=== PATIENT | female | born 1970 | race Caucasian/White ===

== ENCOUNTER 2017-06-16 06:10 | Inpatient (IN) ==
[2017-06-16] MEDS ORDERED: Albuterol 2.5 MG/3 ML NEBULIZER IH ONE (06:31)
[2017-06-16] MEDS ORDERED: Ringers Solution, Lactated 1,000 ML IVC SCH ×2 (06:45→11:15)
[2017-06-16] MEDS ORDERED: *HR* Succinylcholine 200 MG/10 ML VIAL IVP ONE (06:59)
[2017-06-16] MEDS ORDERED: *HR* FentaNYL (PF) 100 MCG/2 ML VIAL ONE (06:59)
[2017-06-16] MEDS ORDERED: Ondansetron 4 MG/2 ML VIAL ONE ×2 (06:59→07:00)
[2017-06-16] MEDS ORDERED: *HR* Midazolam HCl 2 MG/2 ML VIAL ONE (06:59)
[2017-06-16] MEDS ORDERED: *HR* Rocuronium Bromide 50 MG/5 ML VIAL ONE (06:59)
[2017-06-16] MEDS ORDERED: Lidocaine -MPF 2% 2 ML VIAL ONE ×2 (06:59→07:00)
[2017-06-16] MEDS ORDERED: *HR* Propofol 200 MG/20 ML VIAL IVP ONE (06:59)
[2017-06-16] MEDS ORDERED: Dexamethasone 4 MG/ML VIAL ONE (07:00)
[2017-06-16] MEDS ORDERED: Lidocaine -MPF 4% 5 ML AMPUL ONE (07:00)
[2017-06-16] MEDS ORDERED: *HR* Phenylephrine 10 MG/ML VIAL ONE (07:00)
--- NOTE | 2017-06-16 07:27 | History & Physical Report ---
Date of Encounter: 06/16/17 Time of Encounter: 07: 24 Hour HP Update - Instructions Instructions: If the History and Physical is less than 30 days old and was completed prior to A.M. admission and or procedure and has NOT been updated on calendar day of procedure please complete this update prior to performing procedure. - Update Patient reports changes in Medical Condition: No Changes in examination, assessment, or condition: No Changes in Medication: No Preop tests/diagnostics Reviewed: Yes Surgery Remains Indicated: Yes Consent for Planned Operative Procedure(s) Verified: Yes - Pre-Operative Checklist Preoperative Checklist Indicated: Yes Prophylactic Antibiotic Ordered: Yes Home Medications Include Beta Thang: No Beta Thang Taken Today (Day of Surgery): No Beta Thang Taken Yesterday (Day Prior to Surgery): No Is VTE Prophylaxis Indicated?: Yes
--- NOTE | 2017-06-16 07:35 | Anesthesia Evaluation PreOp ---
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: Denies Any Significant HX Other Medical History: Diabetes Type II (does not use insulin) Anesthesia History: No Prior Anesthetic Complications Alcohol Use: none Drug use: none Medications and Allergies Aspirin [Lo-Dose Aspirin EC] 81 mg PO DAILY 05/31/17 [History] Atorvastatin [Lipitor] 40 mg PO HS 05/31/17 [History] Buspirone HCl [Buspar] 10 mg PO BID 05/31/17 [History] Carvedilol [Coreg] 25 mg PO BID 05/31/17 [History] FLUoxetine HCl [PROzac] 60 mg PO DAILY 05/31/17 [History] Linagliptin [Tradjenta] 5 mg PO DAILY 05/31/17 [History] Lisinopril [Zestril] 40 mg PO DAILY 05/31/17 [History] Metformin HCl [Glucophage] 1,000 mg PO BID 05/31/17 [History] Allergies No Known Allergies Allergy (Unverified 06/16/17 06:55) - Meds/Allergy Pre-op Review Medications Reviewed: Yes Allergies Reviewed: Yes Beta Blockers on Current Med List: Yes If Beta Blockers taken, Date/Time (Last Dose taken): 06-16-17 coreg 5:00 am Anesthesia Results - Labs Laboratory Tests 05/31/17 06/16/17 06:48 06:31 POC Glucose 154 H POC Urine HCG, Qual Negative - Imaging EKG: report reviewed, image reviewed (SR; poor R wave progression) Anesthesia Exam Last Vital Signs Temp 98.1 F 06/16/17 06:33 Pulse 79 06/16/17 06:33 Resp 18 06/16/17 06:33 BP 121/75 06/16/17 06:33 Pulse Ox 97 06/16/17 06:33 Weight: 97 kg NPO (# of Hours): >> 8 hrs - HEENT Pupil (Motor): Pupils equal, EOMI Mallampati: III Teeth: Edentulous Oral Opening: Greater than 3 - CARTON STENCILER LOC: Oriented CARTON STENCILER Motor: Normal RUE, Normal LUE, Normal RLE, Normal LLE, Normal Face - Cardiac Rhythm: Regular Murmur: None - Pulmonary Breath Sounds: bilateral Clear Respiratory Effort: Symmetrical Anesthesia Assess/Plan ASA Score: 3 Modified Maurice Scale for Level of Consciousness: Cooperative, oriented, and tranquil Anesthetic Plan: General Monitoring Plan: Standard Monitors Recovery Plan: PACU
[2017-06-16] MEDS ORDERED: EPHEDrine 50 MG/ML VIAL ONE (07:46)
[2017-06-16] MEDS ORDERED: *HR* HYDROmorphone 2 MG/ML SYRINGE ONE (08:12)
[2017-06-16] MEDS ORDERED: *HR* Meperidine 25 MG/ML SYRINGE IVP PRN (08:41)
[2017-06-16] MEDS ORDERED: *HR* Promethazine 25 MG/ML VIAL IVP PRN (08:41)
[2017-06-16] MEDS ORDERED: Neostigmine Methylsulfate 3 MG/3 ML SYRINGE ONE (10:27)
[2017-06-16] MEDS ORDERED: Naloxone 0.4 MG/ML INJ IVP PRN (11:04)
[2017-06-16] MEDS: *HR* HYDROmorphone (PF) 1 MG/ML SYRINGE IVP PRN ×4 (11:15→12:10)
--- NOTE | 2017-06-16 11:24 | OB/GYN Procedure Note ---
OB-SAS ARCHITECT: Procedure - Diagnosis Date of procedure: 06/16/17 Pre-op diagnosis: AUB Post-op diagnosis: same - Procedure Procedure: SHIRLEY, BS, cysto Surgeon: Katlin Armendariz Drop Count Associate: Orion Marquez Anesthesia Type: General Estimated blood loss (cc): 200 Fluids: crystalloid Procedure Complications: none Specimens collected: uterus, bilateral tubes Disposition: floor Findings: severely adherent bladder to anterior uterine wall Narrative: The patient was brought into the OR where general anesthesia was given without difficulty. Lazo was placed and was draining clear urine from the bladder. After the patient was prepped and draped in the usual sterile manner, a Pfannenstiel incision was made at the level of her previous scar. Subcutaneous tissue was incised until the level of the rectus fascia was reached. A erika was made in the fascia. This was extended the length of the incision using Bowling scissors. There was dense scar tissue communicating with the recti muscles but we were able to separate the muscles and get adequate entry into the abdomen. We explored the abdomen. The bowels grossly appeared normal. The uterus was noted to be severely adherent to the bladder. The ovaries and tubes were examined and found to be normal. The Bookwalter retractor was set up before the hysterectomy was started. The right round ligament was clamped with the Ligasure device, clamped and cut. The anterior leaf of the broad ligament was cut using Metzenbaum scissors. The bladder that was adherent to the anterior aspect of the uterus was gently dissected using sharp and blunt dissection and it was gently pushed down with the sponge on a stick. Two fingers were inserted through the posterior leaf of the right broad ligament. The tissue was grasped with the Ligasure, clamped and cut to free the ovaries as well as amputate the tubes. The right uterine artery was then skeletonized, clamped at the level of the cervical os using the Ligasure device and cut. Similar procedure was done on the opposite side. By the time we got down to the cervix, we saw that the bladder was still adherent. After re-examination of how densely adherent the bladder was, I decided to perform a supracervical hyterectomy to avoid bladder injury.We spent a lot time bluntly and sharply dissecting the bladder off the uterus. When we were satisfied that we had reached the cervico-uterine junction and the bladder was dissected off, we proceeded to amputate the uterus at this point. This we did by placing 2 curved heaneys tip to tip together beneath the cervix, using curved scissors to amputate the uterus. O-Vicryl suture was then used to approximate the cuff. Bleeding points were suture ligated until adequate hemsostasis was achieved. A cystoscopy was done and the bladder was thoroughly inspected to make sure there was no stitch through the bladder. I changed gloves and gown and proceeded to finish up the case after the cystoscopy. The retractor was taken out from the abdomen as well as the laps sponges. The recti muscles were reapproximated with 3-0 vicryl, the fascia was reapproximated with 0-vicryl, the subcutaneous tissue was reapproximated with 3- 0 vicryl. The skin was closed with roger. The patient tolerated the procedure well and was transferred to the floor.
[2017-06-16] MEDS ORDERED: Dextrose Gel 15 GM PO PRN ×2 (11:34)
[2017-06-16] MEDS ORDERED: *HR* Dextrose 50 % in Water (Syg) 50 ML SYRINGE IVP PRN (11:34)
[2017-06-16] MEDS ORDERED: D5% in Water 1,000 ML IVC PRN (11:34)
[2017-06-16] MEDS ORDERED: Acetaminophen IV 1,000 MG/100 ML INFUS..BTL IVPB ONE (11:56)
[2017-06-16] MEDS ORDERED: Ketorolac 30 MG/ML VIAL IVP ONE (11:56)
--- NOTE | 2017-06-16 12:17 | Anesthesia Evaluation Post Op ---
Date of Encounter: 06/16/17 Time of Encounter: 12:17 - Vital Signs Vital Signs: Last Vital Signs Temp 99.3 F 06/16/17 12:02 Pulse 75 06/16/17 12:12 Resp 16 06/16/17 12:12 BP 121/69 06/16/17 12:12 Pulse Ox 95 06/16/17 12:12 - Lungs Lungs: Clear Ascult./Percussion - Airway Airway: Non-obstructed - Cardiovascular Regular Rate - Mental Status Mental Status: Alert & Oriented, Answers Appropriately - Pain Pain Scale: 5 - Nausea Vomiting Nausea Vomiting: Not Present - Hydration Hydration: Ice chips, Lazo catheter - Discharge PostOp Status: Transfer Patient to floor
[2017-06-16 15:40] LABS: Hemoglobin A1C 7.7 %
[2017-06-16] MEDS: *HR* OxyCODONE/APAP 5/325 TABLET PO PRN ×2 (16:03→20:44)
[2017-06-16] MEDS: Insulin LISPRO 300 UNITS/3 ML VIAL SQ SCH (17:01)
[2017-06-17] MEDS: *HR* OxyCODONE/APAP 5/325 TABLET PO PRN ×4 (02:18→16:09)
[2017-06-17] MEDS: Ibuprofen 600 MG TABLET PO PRN ×2 (07:05→16:09)
[2017-06-17 07:45] LABS: Basophils % 0.2 %; Eosinophils % 0.1 %; Hematocrit 37.7 % (35.3-44.9); Hemoglobin 13.1 g/dL (11.5-15.4); Immature Granulocytes % 0.3 % (0-4); Lymphocytes # 2.3 K/mcL (0.6-4.6); Lymphocytes % 15.6 %; Mean Corpuscular HGB Conc 34.7 g/dL (31.6-35.5); Mean Corpuscular Hemoglobin 29.6 pg (28.0-33.3); Mean Corpuscular Volume 85.3 fL (83.0-100.0); Mean Platelet Volume 9.8 fL (9.4-12.4); Monocytes # 1.1 K/mcL (0.0-1.3); Monocytes % 7.4 %; Neutrophils # 11.1 K/mcL (1.6-8.9); Platelet Count 350 K/mcL (140-400); Red Blood Count 4.42 M/mcL (3.82-4.97); Red Cell Distribution Width 12.9 % (11.5-14.5); Segmented Neutrophils % 76.4 %
[2017-06-17 07:52] LABS: Alanine Aminotransferase 48 Units/L (0-55); Albumin 3.1 g/dL (3.5-5.0); Albumin/Globulin Ratio 0.9 (1.1-2.2); Alkaline Phosphatase 81 Units/L (38-126); Aspartate Amino Transferase 27 Units/L (5-34); BUN/Creatinine Ratio 10 (6-26); Bilirubin,Total 0.6 mg/dL (0.2-1.2); Blood Urea Nitrogen 8 mg/dL (7-20); Calcium 9.2 mg/dL (8.6-10.8); Carbon Dioxide 26 mEq/L (19-29); Chloride 105 mEq/L (98-109); Globulin 3.5 g/dL (2.4-3.5); Glucose 153 mg/dL (70-99); Osmolality,Calculated 285 (280-300); Potassium 4.2 mEq/L (3.5-4.5); Sodium 137 mEq/L (136-145); Total Protein 6.6 g/dL (6.0-8.3); eGFR For African Americans > 60 (> 60); eGFR For Non-African Americans > 60 (> 60)
[2017-06-17] MEDS: Insulin LISPRO 300 UNITS/3 ML VIAL SQ SCH ×3 (08:19→17:04)
[2017-06-17 08:30] VITALS: BP 135/80
--- NOTE | 2017-06-17 12:59 | Discharge Summary ---
Date of Encounter: 06/17/17 Time of Encounter: 12:58 - Discharge Diagnosis (1) Status post hysterectomy Priority: Primary Status: Acute Comments: status post SHIRLEY, POD#1, doing well, patient wants to go home, ambulating without issues, tolerating PO, pain under control, good UOP, ok for discharge to follow up outpt - Discharge Medications Prescriptions: Ibuprofen [Motrin] 600 mg PO Q6HR PRN #60 tab PRN Reason: Pain Oxycodone HCl/Acetaminophen [Percocet 5-325 mg Tablet] 1 each PO Q4-6H PRN #40 tablet PRN Reason: Severe Pain Home Medications: Aspirin [Lo-Dose Aspirin EC] 81 mg PO DAILY 05/31/17 [History] Atorvastatin [Lipitor] 40 mg PO HS 05/31/17 [History] Buspirone HCl [Buspar] 10 mg PO BID 05/31/17 [History] Carvedilol [Coreg] 25 mg PO BID 05/31/17 [History] FLUoxetine HCl [PROzac] 60 mg PO DAILY 05/31/17 [History] Linagliptin [Tradjenta] 5 mg PO DAILY 05/31/17 [History] Lisinopril [Zestril] 40 mg PO DAILY 05/31/17 [History] Metformin HCl [Glucophage] 1,000 mg PO BID 05/31/17 [History] Ibuprofen [Motrin] 600 mg PO Q6HR PRN #60 tab 06/17/17 [Rx] Oxycodone HCl/Acetaminophen [Percocet 5-325 mg Tablet] 1 each PO Q4-6H PRN #40 tablet 06/17/17 [Rx] Allergies/Adverse Reactions: Allergies No Known Allergies Allergy (Unverified 06/16/17 06:55) Data Procedures and tests throughout hospitalization: Laboratory Tests 06/16/17 06/16/17 06/16/17 06:29 06:31 13:05 WBC RBC Hgb Hct MCV MCH MCHC RDW Plt Count MPV Immature Gran % Seg Neutrophils % Lymphocytes % Monocytes % Eosinophils % Basophils % Neutrophils # Lymphocytes # Monocytes # Eosinophils # Basophils # Sodium Potassium Chloride Carbon Dioxide BUN Creatinine Est GFR ( Amer) Est GFR (Non-Af Amer) BUN/Creatinine Ratio Glucose POC Glucose 143 H Est Mean Plasma Glucose 174 Hemoglobin A1c 7.7 H Calculated Osmolality Calcium Total Bilirubin AST ALT Alkaline Phosphatase Serum Total Protein Albumin Globulin Albumin/Globulin Ratio POC Urine HCG, Qual Negative 06/16/17 06/17/17 06/17/17 16:19 07:04 07:04 WBC 14.5 H RBC 4.42 Hgb 13.1 Hct 37.7 MCV 85.3 MCH 29.6 MCHC 34.7 RDW 12.9 Plt Count 350 MPV 9.8 Immature Gran % 0.3 Seg Neutrophils % 76.4 Lymphocytes % 15.6 Monocytes % 7.4 Eosinophils % 0.1 Basophils % 0.2 Neutrophils # 11.1 H Lymphocytes # 2.3 Monocytes # 1.1 Eosinophils # 0.0 Basophils # 0.0 Sodium 137 Potassium 4.2 Chloride 105 Carbon Dioxide 26 BUN 8 Creatinine 0.81 Est GFR ( Amer) > 60 Est GFR (Non-Af Amer) > 60 BUN/Creatinine Ratio 10 Glucose 153 H POC Glucose 209 H Est Mean Plasma Glucose Hemoglobin A1c Calculated Osmolality 285 Calcium 9.2 Total Bilirubin 0.6 AST 27 ALT 48 Alkaline Phosphatase 81 Serum Total Protein 6.6 Albumin 3.1 L Globulin 3.5 Albumin/Globulin Ratio 0.9 L POC Urine HCG, Qual 06/17/17 06/17/17 08:01 11:45 WBC RBC Hgb Hct MCV MCH MCHC RDW Plt Count MPV Immature Gran % Seg Neutrophils % Lymphocytes % Monocytes % Eosinophils % Basophils % Neutrophils # Lymphocytes # Monocytes # Eosinophils # Basophils # Sodium Potassium Chloride Carbon Dioxide BUN Creatinine Est GFR ( Amer) Est GFR (Non-Af Amer) BUN/Creatinine Ratio Glucose POC Glucose 156 H 208 H Est Mean Plasma Glucose Hemoglobin A1c Calculated Osmolality Calcium Total Bilirubin AST ALT Alkaline Phosphatase Serum Total Protein Albumin Globulin Albumin/Globulin Ratio POC Urine HCG, Qual Labs on day of discharge: Labs from last 24 hours 06/17/17 06/17/17 06/17/17 11:45 08:01 07:04 WBC RBC Hgb Hct MCV MCH MCHC RDW Plt Count MPV Immature Gran % Seg Neutrophils % Lymphocytes % Monocytes % Eosinophils % Basophils % Neutrophils # Lymphocytes # Monocytes # Eosinophils # Basophils # Sodium 137 Potassium 4.2 Chloride 105 Carbon Dioxide 26 BUN 8 Creatinine 0.81 Est GFR ( Amer) > 60 Est GFR (Non-Af Amer) > 60 BUN/Creatinine Ratio 10 Glucose 153 H POC Glucose 208 H 156 H Est Mean Plasma Glucose Hemoglobin A1c Calculated Osmolality 285 Calcium 9.2 Total Bilirubin 0.6 AST 27 ALT 48 Alkaline Phosphatase 81 Serum Total Protein 6.6 Albumin 3.1 L Globulin 3.5 Albumin/Globulin Ratio 0.9 L 06/17/17 06/16/17 06/16/17 07:04 16:19 13:05 WBC 14.5 H RBC 4.42 Hgb 13.1 Hct 37.7 MCV 85.3 MCH 29.6 MCHC 34.7 RDW 12.9 Plt Count 350 MPV 9.8 Immature Gran % 0.3 Seg Neutrophils % 76.4 Lymphocytes % 15.6 Monocytes % 7.4 Eosinophils % 0.1 Basophils % 0.2 Neutrophils # 11.1 H Lymphocytes # 2.3 Monocytes # 1.1 Eosinophils # 0.0 Basophils # 0.0 Sodium Potassium Chloride Carbon Dioxide BUN Creatinine Est GFR ( Amer) Est GFR (Non-Af Amer) BUN/Creatinine Ratio Glucose POC Glucose 209 H Est Mean Plasma Glucose 174 Hemoglobin A1c 7.7 H Calculated Osmolality Calcium Total Bilirubin AST ALT Alkaline Phosphatase Serum Total Protein Albumin Globulin Albumin/Globulin Ratio 06/16/17 06:29 WBC RBC Hgb Hct MCV MCH MCHC RDW Plt Count MPV Immature Gran % Seg Neutrophils % Lymphocytes % Monocytes % Eosinophils % Basophils % Neutrophils # Lymphocytes # Monocytes # Eosinophils # Basophils # Sodium Potassium Chloride Carbon Dioxide BUN Creatinine Est GFR ( Amer) Est GFR (Non-Af Amer) BUN/Creatinine Ratio Glucose POC Glucose 143 H Est Mean Plasma Glucose Hemoglobin A1c Calculated Osmolality Calcium Total Bilirubin AST ALT Alkaline Phosphatase Serum Total Protein Albumin Globulin Albumin/Globulin Ratio Date of admission: 06/16/17 12:53 Primary care physician: Sara Jacinto CNP - Patient Status Disposition: Home, Self-Care Condition: Good Functional capacity at discharge: independent ambulation Overall status at discharge: patient is progressing back to baseline - Discharge Instructions Follow Up With: Sara Jacinto CNP [Primary Care Provider] - Hospital Course INTERVIEWING CLERK Time Attestation: Total time spent providing and/or coordinating discharge services: Exam - Constitutional Vitals: Temp Pulse Resp BP Pulse Ox 98.0 F 73 16 135/80 95 06/17/17 07:30 06/17/17 07:30 06/17/17 07:30 06/17/17 07:30 06/17/17 02:30 General appearance IM: A&O X 3 - Respiratory Respiratory exam: Present: CTAB - Cardiovascular Cardiovascular exam IM: Present: RRR - GI/Abdominal GI/Abdominal exam IM: normal bowel sounds Incision: normal, intact - Extremities Exam Extremities exam IM: Present: warm - VTE Documentation of Mechanical Device: Intermittent pneumatic compression device
== END 2017-06-17 16:35 | disposition home or self-care (01) | DRG 743 ==
LOC: SAMDAY 06:10 → 1NENUOBS 12:53
PROVIDERS: ADMIT Student in an Organized Health Care Education/Training Program; ATTEND Student in an Organized Health Care Education/Training Program